=== PATIENT | male | born 1965 | race Caucasian/White ===

== ENCOUNTER → 2022-03-21 | Outpatient (CLI) | payer OTHER ==
--- NOTE | 2022-03-21 09:28 | Diagnostic Imaging Report ---
EXAMINATION: Magnetic resonance imaging of the right shoulder without contrast. DATE: March 21, 2022. COMPARISON: None. HISTORY: 56-year-old male, right shoulder pain. Recent injury. TECHNIQUE: Magnetic Resonance Imaging sequences were performed of the shoulder without contrast. FINDINGS: ROTATOR CUFF, LIGAMENTS, TENDONS, AND MUSCLES: The supraspinatus, infraspinatus, teres minor, and subscapularis tendons and muscles are intact. There is normal rotator cuff muscle bulk and signal. LONG HEAD OF BICEPS: The biceps labral attachment and long head of the biceps tendon is intact. The long head of the biceps tendon is normally positioned within the bicipital groove. GLENOHUMERAL JOINT: The humeral head is well positioned relative to the glenoid. There is a large labral tear which is involving at least the entire length of the anterior labrum from the biceps labral attachment to the inferior labrum at the 6 o'clock position. The tear most likely extends to involve the posterior inferior labrum to approximately the 7:30 position as well. There is displacement of the torn anterior labral ligamentous tissue. There is no identified paralabral cyst. The articular cartilage is grossly intact. There is no joint effusion. ACROMIOCLAVICULAR JOINT: The acromio clavicular joint is abnormally widened. Additionally, the distal clavicle is superiorly subluxed relative to the acromion by 5 mm. There are complete tears of the coracoclavicular ligaments and coracoacromial ligament. There is immediately adjacent soft tissue edema and fluid . There are mild acromioclavicular degenerative changes without undersurface osteophyte. BONE: There is no os acromiale. There is an acute Hill-Sachs deformity measuring approximately 18 mm in length with an estimated depth of 2 mm. There is a mildly displaced fracture of the scapular spine well demonstrated on sagittal T1 sequence image 22. The superior fracture fragment is displaced posteriorly by 3 mm. BURSAE AND SOFT TISSUES: There is prominent soft tissue edema and fluid signal adjacent to the tears of the coracoclavicular and coracoacromial ligaments as described above. IMPRESSION: 1. High-grade acromioclavicular joint separation injury with widening of the acromio clavicular joint, superior subluxation of the distal clavicle, and complete tears of the coracoclavicular and coracoacromial ligaments. 2. Mildly displaced fracture of the scapular spine. 3. Acute Hill-Sachs deformity. 4. Large labral tear involving the entire extent of the anterior labrum from the 12:00 to 6 o'clock position with extension of the tear to the posterior inferior labrum at approximately the 7:30 position. There is displacement of the torn anterior labral ligamentous structures. 5. Intact rotator cuff and proximal long head of biceps tendon. Dictated by: Dictated on workstation # [id number]
== END ==
LOC: RAD 07:28
PROVIDERS: ATTEND Orthopaedic Surgery
DX: S46.011A Strain of muscle(s) and tendon(s) of the rotator cuff of right shoulder, initial encounter (principal); S43.421A Sprain of right rotator cuff capsule, initial encounter; S42.291A Other displaced fracture of upper end of right humerus, initial encounter for closed fracture; S42.111A Displaced fracture of body of scapula, right shoulder, initial encounter for closed fracture; X58.XXXA Exposure to other specified factors, initial encounter
CPT/HCPCS: 73221

== ENCOUNTER → 2023-01-11 | Outpatient (CLI) | payer OTHER | LOC: CARD 13:39 | DX: R00.2 Palpitations (principal) | CPT/HCPCS: 93225; 93226 ==

== ENCOUNTER 2023-02-10 08:20 | Emergency (ER) | payer OTHER ==
[~2023-02-10] VITALS: Ht 175 cm; Wt 86.0 kg
[2023-02-10] MEDS ORDERED: ASPIRIN 81 MG CHEWABLE TABLET PO ONE (08:45)
[2023-02-10 08:56] LABS: BASOPHILS # (AUTO) 0.1 10^3/uL (0.0-0.1); BASOPHILS % (AUTO) 1 % (0-10); EOSINOPHILS # (AUTO) 0.2 10^3/uL (0.0-0.3); EOSINOPHILS % (AUTO) 4 % (0-10); HEMATOCRIT 47 % (40-54); HEMOGLOBIN 16.2 g/dL (13.3-17.7); LYMPHOCYTES # (AUTO) 1.6 10^3/uL (1.0-4.0); LYMPHOCYTES % (AUTO) 31 % (12-44); MEAN CORPUSCULAR HEMOGLOBIN 31 pg (25-34); MEAN CORPUSCULAR HGB CONC 35 g/dL (32-36); MEAN CORPUSCULAR VOLUME 89 fL (80-99); MEAN PLATELET VOLUME 10.1 fL (9.0-12.2); MONOCYTES # (AUTO) 0.5 10^3/uL (0.0-1.0); MONOCYTES % (AUTO) 10 % (0-12); NEUTROPHILS # (AUTO) 2.8 10^3/uL (1.8-7.8); NEUTROPHILS % (AUTO) 54 % (42-75); PLATELET COUNT 256 10^3/uL (130-400); WHITE BLOOD COUNT 5.3 10^3/uL (4.3-11.0)
[2023-02-10 09:04] LABS: INR 0.9 (0.8-1.4); PROTHROMBIN TIME PATIENT 12.3 SEC (12.2-14.7)
[2023-02-10 09:07] LABS: FIBRIN DEGRADATION PRODUCTS 0.29 UG/ML (0.00-0.49)
--- NOTE | 2023-02-10 09:07 | ED Chest Pain ---
General Chief Complaint: Chest Pain Stated Complaint: CHEST PAIN Nursing Triage Note: PT STATES CHEST PAIN THAT STARTED ABOUT 1 HR BILLING ASSOCIATE, DIZZY Source: patient, family Exam Limitations: no limitations History of Present Illness Date Seen by Provider: Feb 10, 2023 Time Seen by Provider: 08:26 Initial Comments Significant other with report of chest pain that started approximately 1 hour prior to arrival. States that it started as sharp and achy pain on the left chest and then radiated to his shoulder and down his left arm. That prompted him coming here. He states the pain is actually better now in the arm and shoulder mostly resolved and he has only minimal residual to the left chest. He apparently has had previous work-up and states he had Holter monitor placed for 48 hours and does have follow-up appointment in March with cardiology. Does not smoke and does not have significant family history for cardiac disease. Blood pressure was a little high today but he states he does not normally have high blood pressure. States that he got chills during the episode and felt like he had to have a bowel movement but feels better now. Denies any recent illness or upper respiratory symptoms. Timing/Duration: 1 hour Severity/Quality: moderate Location: central Radiation: arms (Left side), shoulders (Left side) Prior CP/Workup: other (Outside facility Holter monitor) ASA po BILLING ASSOCIATE: Yes (81 mg) NTG SL BILLING ASSOCIATE: No Associated Symptoms: No abdominal pain, No back pain, No diaphoresis, No shortness of breath, No weakness Allergies and Home Medications Allergies Coded Allergies: morphine (Verified Allergy, Intermediate, Vomiting, 02/10/23) Patient Home Medication List Home Medication List Reviewed: Yes Review of Systems Review of Systems Constitutional: see HPI, chills; No fever EENTM: No Nose Congestion, No Throat Pain Respiratory: Denies Cough, Denies Shortness of Air Cardiovascular: Chest Pain; Denies Edema, Denies Irregular Heart Rate Gastrointestinal: See HPI; Denies Nausea, Denies Vomiting Genitourinary: No Symptoms Reported Musculoskeletal: muscle pain Skin: no symptoms reported Psychiatric/Neurological: No Symptoms Reported Past Olasusx-Kvckhi-Bcumms Hx Patient Social History Tobacco Use?: No Substance use?: No Alcohol Use?: No Immunizations Up To Date Second COVID19 Vaccination Sohail: YES Past Medical History Surgery/Hospitalization HX: LT ANKLE, BI LAT SHOULDER, NECK, FAYE, LT KNEE Family Medical History Reviewed Nursing Family Hx Physical Exam Vital Signs Vital Signs - First Documented 02/10/23 08:29 Temp 36.4 Pulse 63 Resp 18 B/P (MAP) 162/102 (122) Pulse Ox 99 O2 Delivery Room Air Capillary Refill : Less Than 3 Seconds Height, Weight, BMI Height: '" Weight: lbs. oz. kg; 28.00 BMI Method: General Appearance: No Apparent Distress, WD/WN HEENT: PERRL/EOMI, Pharynx Normal Neck: Non Tender, Supple Respiratory: Lungs Clear, Normal Breath Sounds Cardiovascular: Regular Rate, Rhythm, No Murmur Gastrointestinal: Non Tender, Soft Extremity: Normal Range of Motion, Non Tender, No Calf Tenderness, No Pedal Edema Neurologic/Psychiatric: Alert, Oriented x3 Skin: Normal Color, Warm/Dry Progress/Results/Core Measures Results/Orders Lab Results Laboratory Tests Test 02/10/23 08:40 02/10/23 10:30 Range/Units White Blood Count 5.3 4.3-11.0 10^3/uL Red Blood Count 5.26 4.30-5.52 10^6/uL Hemoglobin 16.2 13.3-17.7 g/dL Hematocrit 47 40-54 % Mean Corpuscular Volume 89 80-99 fL Mean Corpuscular Hemoglobin 31 25-34 pg Mean Corpuscular Hemoglobin Concent 35 32-36 g/dL Red Cell Distribution Width 12.2 10.0-14.5 % Platelet Count 256 130-400 10^3/uL Mean Platelet Volume 10.1 9.0-12.2 fL Immature Granulocyte % (Auto) 0 % Neutrophils (%) (Auto) 54 42-75 % Lymphocytes (%) (Auto) 31 12-44 % Monocytes (%) (Auto) 10 0-12 % Eosinophils (%) (Auto) 4 0-10 % Basophils (%) (Auto) 1 0-10 % Neutrophils # (Auto) 2.8 1.8-7.8 10^3/uL Lymphocytes # (Auto) 1.6 1.0-4.0 10^3/uL Monocytes # (Auto) 0.5 0.0-1.0 10^3/uL Eosinophils # (Auto) 0.2 0.0-0.3 10^3/uL Basophils # (Auto) 0.1 0.0-0.1 10^3/uL Immature Granulocyte # (Auto) 0.0 0.0-0.1 10^3/uL Prothrombin Time 12.3 12.2-14.7 SEC INR Comment 0.9 0.8-1.4 Activated Partial Thromboplast Time 28 24-35 SEC D-Dimer 0.29 0.00-0.49 UG/ML Sodium Level 143 135-145 MMOL/L Potassium Level 4.1 3.6-5.0 MMOL/L Chloride Level 109 H 98-107 MMOL/L Carbon Dioxide Level 26 21-32 MMOL/L Anion Gap 8 5-14 MMOL/L Blood Urea Nitrogen 12 7-18 MG/DL Creatinine 1.00 0.60-1.30 MG/DL Estimat Glomerular Filtration Rate 88 BUN/Creatinine Ratio 12 Glucose Level 100 70-105 MG/DL Calcium Level 9.0 8.5-10.1 MG/DL Corrected Calcium 8.9 8.5-10.1 MG/DL Magnesium Level 2.4 1.6-2.4 MG/DL Total Bilirubin 0.4 0.1-1.0 MG/DL Aspartate Amino Transf (AST/SGOT) 23 5-34 U/L Alanine Aminotransferase (ALT/SGPT) 29 0-55 U/L Alkaline Phosphatase 88 40-136 U/L Myoglobin 39.3 10.0-92.0 NG/ML Troponin I < 0.028 < 0.028 <0.028 NG/ML C-Reactive Protein High Sensitivity 0.15 0.00-0.50 MG/DL Total Protein 6.7 6.4-8.2 GM/DL Albumin 4.1 3.2-4.5 GM/DL My Orders Orders - ZITA FISCHER MD Ekg Tracing (02/10/23 08:24) Cbc With Automated Diff (02/10/23 08:33) Magnesium (02/10/23 08:33) Chest 1 View, Ap/Pa Only (02/10/23 08:33) Comprehensive Metabolic Panel (02/10/23 08:33) Myoglobin Serum (02/10/23 08:33) Protime With Inr (02/10/23 08:33) Partial Thromboplastin Time (02/10/23 08:33) O2 (02/10/23 08:33) Monitor-Rhythm Ecg Trace Only (02/10/23 08:33) Lipid Panel (02/11/23 06:00) Ed Iv/Invasive Line Start (02/10/23 08:33) Fibrin Degradation Products (02/10/23 08:33) Troponin I [place] (02/10/23 08:33) Aspirin Chewable Tablet (Aspirin Chewabl (02/10/23 08:45) Hs C Reactive Protein (02/10/23 08:33) Troponin I [place] (02/10/23 10:30) Medications Given in ED Current Medications Medications Dose Ordered Sig/[place] Route Start Time Stop Time Status Last Admin Dose Admin Aspirin 243 mg ONCE ONCE PO 02/10/23 08:45 02/10/23 08:46 DC 02/10/23 08:45 243 MG Vital Signs/I&O 02/10/23 08:29 Temp 36.4 Pulse 63 Resp 18 B/P (MAP) 162/102 (122) Pulse Ox 99 O2 Delivery Room Air Blood Pressure Mean: 122 Progress Progress Note : Progress Note Seen and evaluated. EKG and chest x-ray ordered. Labs include CBC, CMP, troponin, myoglobin, CRP and D-dimer. ASA 243 mg p.o. ordered. Pain is improving now. Monitor patient. Differential diagnosis includes cardiac event, infection, musculoskeletal pain. 0941: EKG reviewed and shows no acute findings. Chest x-ray reviewed by me and shows no acute findings on my interpretation. CBC is normal, CMP and coags are normal. D-dimer, troponin and myoglobin are all negative. Overall doing better at this point. We will repeat troponin at 2-hour jonny after arrival and this would be 3 hours after onset of pain and ensure that that is still stable. I did review Holter monitor study from January 22, 2023 and that showed no significant ectopy with only occasional PVC and PAC. 1000: Patient is pain- free. We will repeat troponin at 1030 and if still negative, patient can be safely discharged home and continue current outpatient schedule for cardiology. This was discussed with patient and family who agree. Monitor patient. 1117: Repeat troponin negative. Patient remains chest pain-free. I believe he is safe for discharge at this point and he does have follow-up. Discharged home with return precautions. Patient verbalized understanding of instructions and agreement with plan. Initial ECG Impression Date: Feb 10, 2023 Initial ECG Impression Time: 08:35 Initial ECG Rate: 60 Initial ECG Rhythm: Normal Sinus Initial ECG Impression: Normal Comment Sinus rhythm with normal axis. No evidence of ST elevation AK. Interpreted by me. Diagnostic Imaging Diagonstic Imaging: Xray Plain Films/CT/US/NM/MRI: chest Comments [facility] [place], [place] NAME: RENU SMITH MED REC#: [id number] PT STATUS: REG ER : 1965 PHYSICIAN: ZITA FISCHER MD ADMIT DATE: 02/10/23/ER Signed Date of Exam:02/10/23 CHEST 1 VIEW, AP/PA ONLY CHEST 1 VIEW, AP/PA ONLY INDICATION: Chest pain. COMPARISON: None. FINDINGS: Lungs: Normal lung volume. No focal consolidation. Stable pulmonary vasculature. Pleura: No pleural effusion or pneumothorax. Heart and Mediastinum: Cardiomediastinal silhouette and great vessels of the thorax are stable. Osseous Structures and Soft Tissues: No acute osseous abnormality. Normal soft tissues. IMPRESSION: No acute cardiopulmonary process. Dictated by: Dictated on workstation # [id number] Dict: 02/10/23911 Trans: 02/10/23911 [facility] [place] [id number] Interpreted by: LISA SULLIVAN DO Electronically signed by: LISA SULLIVAN DO 02/10/23911 Reviewed: Reviewed by Me Departure Impression Primary Impression: Chest pain Qualified Codes: R07.9 - Chest pain, unspecified Disposition: HOME, SELF-CARE Condition: Improved Departure-Patient Inst. Referrals: [facility] [place] (PCP/Family) Primary Care Physician Patient Instructions: Chest Pain (DC) Add. Discharge Instructions: All discharge instructions reviewed with patient and/or family. Voiced understanding. Continue home medications as previously prescribed. Follow-up with Dr. White as scheduled. Follow-up with your doctor later this week or early next week for recheck and further evaluation as needed. Return for chest pain, breathing problems, weakness, nausea, vomiting dizziness or other concerns as needed. You may take Tylenol/acetaminophen and/or ibuprofen as needed for musculoskeletal pain per package directions. ZITA FISCHER MD Feb 10, 2023 09:07
[2023-02-10 09:14] LABS: ALANINE AMINOTRANSFERASE 29 U/L (0-55); ALBUMIN 4.1 GM/DL (3.2-4.5); ALKALINE PHOSPHATASE 88 U/L (40-136); BILIRUBIN,TOTAL 0.4 MG/DL (0.1-1.0); BUN/CREATININE RATIO 12; CARBON DIOXIDE 26 MMOL/L (21-32); CHLORIDE 109 MMOL/L (98-107); GFR ESTIMATED 88; GLUCOSE 100 MG/DL (70-105); MAGNESIUM 2.4 MG/DL (1.6-2.4); POTASSIUM 4.1 MMOL/L (3.6-5.0); SODIUM 143 MMOL/L (135-145); TOTAL PROTEIN 6.7 GM/DL (6.4-8.2)
--- NOTE | 2023-02-10 09:14 | Diagnostic Imaging Report ---
CHEST 1 VIEW, AP/PA ONLY INDICATION: Chest pain. COMPARISON: None. FINDINGS: Lungs: Normal lung volume. No focal consolidation. Stable pulmonary vasculature. Pleura: No pleural effusion or pneumothorax. Heart and Mediastinum: Cardiomediastinal silhouette and great vessels of the thorax are stable. Osseous Structures and Soft Tissues: No acute osseous abnormality. Normal soft tissues. IMPRESSION: No acute cardiopulmonary process. Dictated by: Dictated on workstation # [id number]
[2023-02-10 11:35] VITALS: BP 130/87
== END 2023-02-10 11:35 | disposition home or self-care (01) ==
LOC: EDUNIT# 08:20 → ER 08:22
DX: R07.89 Other chest pain (principal)
CPT/HCPCS: 36415; 71045; 80053; 83735; 83874; 84484; 85025; 85379; 85610; 85730; 86141; 93005; 93041